=== PATIENT | female | born 1950 | race Caucasian/White ===

== ENCOUNTER 2020-09-16 13:32 | Emergency (ER) | payer OTHER, MEDICARE ==
[2020-09-16] MEDS ORDERED: Ketorolac 30 MG/ML SDV IM ONE (14:01)
[2020-09-16] MEDS ORDERED: ALPRAZolam 0.25 MG Tab PO ONE (14:02)
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
[2020-09-16] MEDS ORDERED: Acetaminophen/oxyCODONE 325-5 MG Tab PO STA (15:05)
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
[2020-09-16] MEDS ORDERED: Metoprolol Tartrate 50 MG Tab PO ONE (15:48)
[2020-09-16 16:38] VITALS: BP 185/99; PULSE 76
== END 2020-09-16 16:38 | disposition home or self-care (01) ==
LOC: JP.ED 13:32
DX: S20.212A Contusion of left front wall of thorax, initial encounter (principal); I10 Essential (primary) hypertension; E78.00 Pure hypercholesterolemia, unspecified; F03.90 Unspecified dementia, unspecified severity, without behavioral disturbance, psychotic disturbance, mood disturbance, and anxiety; Z90.710 Acquired absence of both cervix and uterus; Z88.0 Allergy status to penicillin; Z88.1 Allergy status to other antibiotic agents; Z79.899 Other long term (current) drug therapy; V43.52XA Car driver injured in collision with other type car in traffic accident, initial encounter
CPT/HCPCS: 71046; 96372; 99283; 99285-25; A9270-GY; J1885

== ENCOUNTER 2021-01-28 07:44 | Emergency (ER) | payer MEDICARE, OTHER ==
--- NOTE | 2021-01-28 08:40 | EDM.PDOC ---
ED HPI GENERAL MEDICAL PROBLEM - General Chief Complaint: Abdominal Pain Stated Complaint: CONSTIPATION Time Seen by Provider: 01/28/21 08:15 Source of Information: Reports: Patient History Limitations: Reports: No Limitations - History of Present Illness INITIAL COMMENTS - FREE TEXT/NARRATIVE: 70-year-old female has been struggling with some generalized abdominal pain for the past week. She is eating okay, having some bowel movements, tried some laxative and that did not seem to help. It seems to be central in location and nonradiating, not related to activity. No fevers or chills. She does have a history of several abdominal surgeries, denies any shortness of breath or chest pain. Nausea but no vomiting. Her symptoms are vague, nonspecific. Onset: Gradual Duration: Day(s): (Has been having intermittent abdominal pain for 7 days) Location: Reports: Abdomen (Especially central abdomen, no radiation) Quality: Reports: Ache (Steady ache) Improves with: Reports: Medication (She thought Pepto-Bismol helped "a little") Worsens with: Reports: None Associated Symptoms: Reports: Malaise, Other (Mild nausea no vomiting). Denies: Chest Pain, Cough, Diaphoresis, Fever/Chills, Loss of Appetite ABDOMINAL Pain Score (Numeric/FACES): 8 - Related Data Allergies Allergy/AdvReac Type Severity Reaction Status Date / Time amitriptyline Allergy Diarrhea Verified 01/28/21 07:55 azithromycin Allergy Cannot Verified 01/28/21 07:55 Remember Penicillins Allergy Weakness Verified 01/28/21 07:55 Home Meds: Home Meds DULoxetine [Cymbalta] 60 mg PO BEDTIME 11/23/14 [History] Simvastatin 20 mg PO BEDTIME 11/23/14 [History] traMADol HCl [Tramadol HCl] 50 mg PO QID 11/23/14 [History] Pregabalin 100 mg PO ASDIRECTED 09/16/20 [History] Past Medical History Cardiovascular History: Reports: High Cholesterol Respiratory History: Reports: None Gastrointestinal History: Reports: None Musculoskeletal History: Reports: Back Pain, Chronic Other Musculoskeletal History: scoliosis Neurological History: Reports: None Psychiatric History: Reports: Dementia, Other (See Below) Other Psychiatric History: insomnia Endocrine/Metabolic History: Reports: None Hematologic History: Reports: None Immunologic History: Reports: None Oncologic (Cancer) History: Reports: None Dermatologic History: Reports: None - Infectious Disease History Infectious Disease History: Reports: Chicken Pox, Measles, Mumps - Past Surgical History HEENT Surgical History: Reports: Oral Surgery Other HEENT Surgeries/Procedures: upper denture GI Surgical History: Reports: None Female Surgical History: Reports: Hysterectomy, Salpingo-Oophorectomy Musculoskeletal Surgical History: Reports: None Social & Family History - Tobacco Use Tobacco Use Status *Q: Current Every Day Tobacco User Years of Tobacco use: 50 Packs/Tins Daily: 0.5 - Caffeine Use Caffeine Use: Reports: Coffee - Recreational Drug Use Recreational Drug Use: No ED ROS GENERAL - Review of Systems Review Of Systems: See Below Constitutional: Reports: Malaise. Denies: Fever, Chills HEENT: Reports: No Symptoms Respiratory: Denies: Shortness of Breath, Cough Cardiovascular: Denies: Chest Pain, Palpitations GI/Abdominal: Reports: Abdominal Pain, Constipation, Nausea. Denies: Hematemesis, Hematochezia, Vomiting : Reports: No Symptoms. Denies: Dysuria, Flank Pain Musculoskeletal: Reports: Back Pain (Chronic back pain, unchanged) Skin: Reports: No Symptoms Neurological: Denies: Dizziness, Numbness, Tingling, Weakness Psychiatric: Reports: No Symptoms ED EXAM, GENERAL - Physical Exam Exam: See Below Exam Limited By: No Limitations General Appearance: Alert, No Apparent Distress Eye Exam: Bilateral Eye: Normal Inspection (No jaundice) Head: Atraumatic Neck: Supple, Non-Tender Respiratory/Chest: No Respiratory Distress, Lungs Clear Cardiovascular: Regular Rate, Rhythm. No: Tachycardia, Extra Beats GI/Abdominal: Soft, Tender (She is very tender to palpation just below the umbilicus with some mild guarding but no rebound tenderness, bowel sounds are normal) Back Exam: Other (Patient has a fairly dramatic appearing scoliosis which is chronic) Neurological: Alert, Oriented Psychiatric: Normal Affect, Normal Mood Skin Exam: Warm, Dry Course - Vital Signs Last Recorded V/S: Last Vital Signs Temp 97.7 F 01/28/21 08:07 Pulse 71 01/28/21 10:08 Resp 14 01/28/21 10:08 BP 204/109 H 01/28/21 10:08 Pulse Ox 98 01/28/21 10:08 - Orders/Labs/Meds Orders: Active Orders 24 hr Category Date Time Status UA W/MICROSCOPIC [URIN] Stat Lab 01/28/21 08:19 Ordered Labs: Laboratory Tests 01/28/21 01/28/21 01/28/21 Range/Units 08:30 08:30 08:30 WBC 7.0 (4.5-11.0) K/uL RBC 4.97 (3.30-5.50) M/uL Hgb 15.1 H (12.0-15.0) g/dL Hct 46.0 (36.0-48.0) % MCV 93 (80-98) fL MCH 30 (27-31) pg MCHC 33 (32-36) % Plt Count 325 (150-400) K/uL Neut % (Auto) 63 (36-66) % Lymph % (Auto) 30 (24-44) % [place] % (Auto) 5 (2-6) % Eos % (Auto) 1 L (2-4) % Baso % (Auto) 0 (0-1) % Sodium 146 (140-148) mmol/L Potassium 4.1 (3.6-5.2) mmol/L Chloride 106 (100-108) mmol/L Carbon Dioxide 28 (21-32) mmol/L Anion Gap 12.3 (5.0-14.0) mmol/L BUN 18 (7-18) mg/dL Creatinine 1.0 (0.6-1.0) mg/dL Est Cr Clr Drug Dosing 41.99 mL/min Estimated GFR (MDRD) 55 L (>60) Glucose 118 H (74-106) mg/dL Lactic Acid 1.2 (0.4-2.0) mmol/L Calcium 9.6 (8.5-10.1) mg/dL Total Bilirubin 0.4 (0.2-1.0) mg/dL AST 13 L (15-37) U/L ALT 20 (12-78) U/L Alkaline Phosphatase 66 (46-116) U/L Total Protein 6.8 (6.4-8.2) g/dL Albumin 3.8 (3.4-5.0) g/dL Globulin 3.0 (2.3-3.5) g/dL Albumin/Globulin Ratio 1.3 (1.2-2.2) Lipase 185 (73-393) U/L Meds: Medications Discontinued Medications Generic Name Dose Route Start Last Admin Trade Name Freq PRN Reason Stop Dose Admin Sodium Chloride 1,000 mls @ 999 mls/hr 01/28/21 09:15 01/28/21 09:41 Normal Saline IV 999 mls/hr ASDIRECTED JOSE Administration Sodium Chloride 70 mls @ 3 mls/sec 01/28/21 09:49 01/28/21 09:58 Normal Saline IV 01/28/21 09:50 3 mls/sec ONETIME ONE Administration Iopamidol 96 ml 01/28/21 09:49 01/28/21 09:58 Iopamidol 612 Mg/Ml 500 Ml Multipack Bottle IV 01/28/21 09:50 96 ml ONETIME ONE Administration Pantoprazole Sodium 40 mg 01/28/21 10:22 01/28/21 10:32 Pantoprazole 40 Mg Vial IVPUSH 01/28/21 10:23 40 mg ONETIME ONE Administration Sodium Chloride 10 ml 01/28/21 09:49 01/28/21 09:58 Sodium Chloride 0.9% 10 Ml Sdv FLUSH 01/28/21 09:50 10 ml ONETIME ONE Administration - Re-Assessments/Exams Free Text/Narrative Re-Assessment/Exam: 01/28/21 08:47 CBC, CMP, lipase were obtained as well as a UA. Lactic acid was drawn as well, we will likely need a CT scan because of the chronicity of symptoms. 01/28/21 09:15 Labs returned very reassuring, CBC lactic acid and lipase were all normal. This was explained to the patient and we discussed a CT scan versus treatment with a PPI for 1 to 2 weeks to see if this improves, she was scared to try the medication without evaluating with a CT because she was sure something was seriously wrong. An IV was started, hydration started and abdomen pelvis with IV contrast will be obtained. 01/28/21 10:[address] showed no reason for pain. She remained stable, no nausea or vomiting. She was given 40 mg of IV Protonix, and I would like her to take 40 mg of omeprazole daily for 3 weeks, a prescription was written. I would also like her to recheck with Dr. Hannon in the next 5 to 10 days for blood pressure recheck and to see if she is getting any benefit from the omeprazole. She can return sooner if worsening such as fever or increased pain. There is no evidence of constipation on the CT scan so I am going to encourage her to just continue with liquids and fiber as needed. Departure - Departure Time of Disposition: 11:04 Disposition: Home, Self-Care 01 Clinical Impression: Abdominal pain Qualifiers: Abdominal location: periumbilical Qualified Code(s): R10.33 - Periumbilical pain - Discharge Information Instructions: Abdominal Pain, Adult, [id number] Referrals: Vimal Hannon MD [Primary Care Provider] - Forms: ED Department Discharge Care Plan Goals: Continue your current medications, take 2 pills of omeprazole daily for at least 1 week starting tomorrow. Best is to take it 20 minutes before your first meal. If symptoms resolve, continue on 1 omeprazole daily for up to 3 weeks and r echeck with Dr. Hannon regarding her blood pressure and symptoms. Return to the emergency room if worsening such as fever, increased pain or other concerns. Sepsis Event Note (ED) - Evaluation Sepsis Screening Result: No Definite Risk - Focused Exam Vital Signs: Vital Signs Temp Pulse Resp BP Pulse Ox 01/28/21 10:08 71 14 204/109 H 98 01/28/21 09:00 73 12 176/120 H 99 01/28/21 08:07 97.7 F 88 14 169/111 H 99 - My Orders Last 24 Hours: My Active Orders 01/28/21 08:19 UA W/MICROSCOPIC [URIN] Stat - Assessment/Plan Last 24 Hours: My Active Orders 01/28/21 08:19 UA W/MICROSCOPIC [URIN] Stat
[2021-01-28] MEDS ORDERED: Sodium Chloride 0.9% 1,000 ML IV SCH (09:15)
[2021-01-28] MEDS ORDERED: Iopamidol 612 MG/ML 500 ML Multipack Bottle IV ONE (09:49)
[2021-01-28] MEDS ORDERED: Sodium Chloride 0.9% 10 ML SDV FLUSH ONE (09:49)
[2021-01-28 10:08] VITALS: BP 204/109; PULSE 71
--- NOTE | 2021-01-28 10:17 | CT ---
Abdomen Pelvis w Cont CLINICAL HISTORY: Abdominal pain COMPARISON: None. TECHNIQUE: Transverse scans were obtained from the base of the lungs to the pubic symphysis following oral contrast and IV infusion of contrast.Auto dosage reduction and iterative reconstructiontechniques employed. FINDINGS: The lung bases are clear. Patient has severe S-shaped rotoscoliosis. The liver shows no mass or biliary dilatation. The gallbladder contains at least one small gallstone. No common duct dilatation is identified. The spleen has a normal size and shape. The pancreas shows no mass or inflammatory change. The adrenal glands appear normal bilaterally . The right kidney contains 2 small cysts. There is no stones or hydronephrosis The ureters have a normal caliber. The bladder has a normal contour. There has been previous hysterectomy The aorta shows atheromatous plaque. Distal aorta is ectatic at 2.7 x 2.8 cm. There is no suspicious retroperitoneal adenopathy. Small intestinal configuration is nonacute. There are a few scattered small diverticula without evidence of diverticulitis. The appendix is not definitively identified. There is no evidence of appendicitis. IMPRESSION: Cholelithiasis with no biliary dilatation Mild diverticulosis Aortic ectasia
[2021-01-28] MEDS ORDERED: Pantoprazole 40 MG Vial IVPUSH ONE (10:22)
== END 2021-01-28 11:09 | disposition home or self-care (01) ==
LOC: JP.ED 07:44
DX: R10.33 Periumbilical pain (principal); E78.00 Pure hypercholesterolemia, unspecified; M41.9 Scoliosis, unspecified; F03.90 Unspecified dementia, unspecified severity, without behavioral disturbance, psychotic disturbance, mood disturbance, and anxiety; Z72.0 Tobacco use; Z88.8 Allergy status to other drugs, medicaments and biological substances; Z88.1 Allergy status to other antibiotic agents; Z88.0 Allergy status to penicillin
CPT/HCPCS: 36415; 74177; 80053; 83605; 83690; 85025; 96374; 99284; C9113; J7030; Q9967

== ENCOUNTER 2021-11-24 15:48 | Emergency (ER) | payer MEDICARE ==
[2021-11-24 16:38] VITALS: BP 173/93; PULSE 88
[2021-11-24] MEDS ORDERED: Albuterol 8 GM Inhaler INH ONE (16:55)
[2021-11-24 16:59] LABS: CORONAVIRUS COVID-19 NAA POSITIVE (NEGATIVE)
== END 2021-11-24 17:36 | disposition home or self-care (01) ==
LOC: JP.ED 15:48
DX: U07.1 COVID-19 (principal); E78.00 Pure hypercholesterolemia, unspecified; Z79.899 Other long term (current) drug therapy; Z88.0 Allergy status to penicillin; Z88.1 Allergy status to other antibiotic agents; Z88.8 Allergy status to other drugs, medicaments and biological substances; Z72.0 Tobacco use
CPT/HCPCS: 0241U; 94640; 99283; A9270

== ENCOUNTER 2021-12-26 16:46 | Emergency (ER) | payer MEDICARE ==
[2021-12-26 19:13] VITALS: PULSE 83
[2021-12-26] MEDS ORDERED: amLODIPine 5 MG Tab PO ONE (19:53)
[2021-12-26 20:04] VITALS: BP 181/106
== END 2021-12-26 20:12 | disposition home or self-care (01) ==
LOC: JP.ED 16:46
DX: U07.1 COVID-19 (principal); I10 Essential (primary) hypertension; E78.00 Pure hypercholesterolemia, unspecified; Z72.0 Tobacco use; Z88.0 Allergy status to penicillin; Z88.1 Allergy status to other antibiotic agents; Z88.8 Allergy status to other drugs, medicaments and biological substances; Z79.899 Other long term (current) drug therapy
CPT/HCPCS: 36415; 71046; 71046-26; 80053; 82728; 83605; 83615; 83880; 84145; 84484; 85025; 85379; 86140; 93005; 99283; 99285-25; A9270-GY

== ENCOUNTER 2022-04-03 08:15 | Day surgery (SDC) | payer MEDICARE ==
[2022-04-03] MEDS ORDERED: Sodium Chloride 0.9% 10 ML Syringe FLUSH ONE (08:30)
[2022-04-03 09:33] VITALS: BP 149/97; PULSE 74
== END 2022-04-03 09:34 | disposition home or self-care (01) ==
LOC: JP.SDS 08:15
PROVIDERS: ATTEND Ophthalmology
DX: H25.11 Age-related nuclear cataract, right eye (principal); J44.9 Chronic obstructive pulmonary disease, unspecified; F32.A Depression, unspecified; F17.200 Nicotine dependence, unspecified, uncomplicated; E66.9 Obesity, unspecified; Z88.0 Allergy status to penicillin; Z88.1 Allergy status to other antibiotic agents; Z68.25 Body mass index [BMI] 25.0-25.9, adult
CPT/HCPCS: 66984; J3490

== ENCOUNTER 2022-04-08 13:09 | Emergency (ER) | payer MEDICARE ==
[2022-04-08 13:32] VITALS: BP 185/113; PULSE 70
== END 2022-04-08 15:35 | disposition home or self-care (01) ==
LOC: JP.ED 13:09
DX: R20.2 Paresthesia of skin (principal); I10 Essential (primary) hypertension; E78.00 Pure hypercholesterolemia, unspecified; F17.210 Nicotine dependence, cigarettes, uncomplicated; Z88.0 Allergy status to penicillin; Z88.1 Allergy status to other antibiotic agents; Z79.899 Other long term (current) drug therapy
CPT/HCPCS: 70450; 99281; 99284-25

== ENCOUNTER 2022-05-22 06:17 | Day surgery (SDC) | payer MEDICARE ==
[2022-05-22] MEDS ORDERED: Sodium Chloride 0.9% 10 ML Syringe FLUSH ONE (07:00)
[2022-05-22 08:09] VITALS: PULSE 70
[2022-05-22 08:19] VITALS: BP 184/103
== END 2022-05-22 08:30 | disposition home or self-care (01) ==
LOC: JP.SDS 06:17
PROVIDERS: ATTEND Ophthalmology
DX: H25.12 Age-related nuclear cataract, left eye (principal); I10 Essential (primary) hypertension; E78.5 Hyperlipidemia, unspecified
CPT/HCPCS: 66984; J3490; V2632

== ENCOUNTER 2025-06-09 12:51 | Inpatient (IN) | payer MEDICARE ==
[2025-06-09 13:17] LABS: BASOPHILS ABSOLUTE AUTO 0.03 K/uL (0.00-0.10); BASOPHILS PERCENT AUTO 0.5 % (0.1-1.3); EOSINOPHILS PERCENT AUTO 0.2 % (0.0-5.4); IMMATURE GRAN PERCENT AUTO 0.3 % (0.0-0.7); LYMPHOCYTES ABSOLUTE AUTO 1.27 K/uL (0.8-3.3); LYMPHOCYTES PERCENT AUTO 19.8 % (11.4-47.7); MONOCYTES ABSOLUTE AUTO 0.50 K/uL (0.20-0.90); MONOCYTES PERCENT AUTO 7.8 % (3.3-12.6); NEUTROPHILS ABSOLUTE AUTO 4.58 K/uL (1.0-7.6); NEUTROPHILS PERCENT AUTO 71.4 % (40.0-78.1); PLATELET COUNT,PLT 336 K/uL (130-375); RED BLOOD CELL COUNT 5.37 M/uL (3.77-5.24); WHITE BLOOD CELL COUNT,WBC 6.4 K/uL (3.2-11.0)
[2025-06-09 13:18] LABS: EOSINOPHILS ABSOLUTE AUTO 0.01 K/uL (0.00-0.40); IMMATURE GRAN ABSOLUTE AUTO 0.02 K/uL (0.00-0.23)
[2025-06-09 13:34] LABS: APPEARANCE,URINE CLEAR (CLEAR); GLUCOSE,URINE NEGATIVE (NEGATIVE); OCCULT BLOOD,URINE TRACE-INTACT (NEGATIVE)
[2025-06-09 13:39] LABS: A/G RATIO 1.1 (1.2-2.2); ALANINE AMINOTRANSFERASE,ALT 20 U/L (12-78); ASPARTATE AMNIOTRANSFERASE,AST 19 U/L (15-37); BILIRUBIN TOTAL 0.9 mg/dL (0.2-1.0); BLOOD UREA NITROGEN,BUN 14 mg/dL (7-18); CARBON DIOXIDE,CO2 27 mmol/L (21-32); CHLORIDE,CL 99 mmol/L (100-108); CREATININE 0.8 mg/dL (0.6-1.0); EST CRCL DRUG DOSING (CG) 53.28 mL/min; ESTIMATED GFR 77 mL/min (>60); GLUCOSE RANDOM 106 mg/dL (74-106); POTASSIUM,K 3.7 mmol/L (3.6-5.2); PROTEIN TOTAL,TP 7.6 g/dL (6.4-8.2); SODIUM,NA 134 mmol/L (140-148)
[2025-06-09 13:44] LABS: SQUAMOUS EPITHELIAL CELLS,UR FEW /HPF; UROTHELIAL CELLS,URINE NOT SEEN /HPF
[2025-06-09 13:44] LABS: LACTIC ACID 1.2 mmol/L (0.4-2.0)
[2025-06-09] MEDS: hydrALAZINE 20 MG/ML SDV IVPUSH ONE (16:17)
[2025-06-09] MEDS: LORazepam 2 MG/ML SDV IVPUSH ONE (17:02)
[2025-06-09] MEDS: Iopamidol 755 Mg/ML 100 ML Bottle IV SCH (18:12)
[2025-06-09] MEDS: Enalaprilat 1.25 MG/ML SDV IVPUSH ONE (18:45)
[2025-06-09 19:06] LABS: AMPHETAMINES SCREEN, URINE NEGATIVE (NEGATIVE); METHADONE SCREEN, URINE NEGATIVE (NEGATIVE); METHAMPHETAMINES SCREEN, URINE NEGATIVE (NEGATIVE); OXYCODONE SCREEN,URINE NEGATIVE (NEGATIVE); PROPOXYPHENE SCREEN,URINE NEGATIVE (NEGATIVE); THC SCREEN,URINE 50 NG/ML NEGATIVE (NEGATIVE)
[2025-06-09] MEDS ORDERED: Iopamidol 755 Mg/ML 100 ML Bottle IV SCH (21:15)
[2025-06-09] MEDS ORDERED: Propofol 200 MG/20 ML SDV ONE (22:20)
[2025-06-10 00:29] LABS: T4 FREE 1.17 ng/dL (0.76-1.46); TSH ULTRASENSITIVE 2.199 uIU/mL (0.358-3.740)
[2025-06-10] MEDS: Enalaprilat 1.25 MG/ML SDV IVPUSH ONE (01:08)
[2025-06-10] MEDS ORDERED: Ondansetron 4 MG Tab.DIS PO PRN (02:52)
[2025-06-10] MEDS ORDERED: Magnesium Hydroxide 400 MG/5 ML Susp 30 ML Cup PO PRN (02:52)
[2025-06-10] MEDS ORDERED: Sennosides/Docusate Sodium 50-8.6 MG Tab PO PRN (02:52)
[2025-06-10] MEDS ORDERED: LORazepam 2 MG/ML SDV IVPUSH PRN (02:52)
[2025-06-10] MEDS ORDERED: Sodium Chloride 0.9% 10 ML Syringe FLUSH PRN (02:52)
[2025-06-10] MEDS ORDERED: Ondansetron 4 MG/2 ML SDV IV PRN (02:52)
[2025-06-10 03:11] LABS: BASOPHILS ABSOLUTE AUTO 0.04 K/uL (0.00-0.10); BASOPHILS PERCENT AUTO 0.5 % (0.1-1.3); EOSINOPHILS PERCENT AUTO 0.0 % (0.0-5.4); IMMATURE GRAN PERCENT AUTO 0.2 % (0.0-0.7); LYMPHOCYTES ABSOLUTE AUTO 1.80 K/uL (0.8-3.3); LYMPHOCYTES PERCENT AUTO 22.1 % (11.4-47.7); MONOCYTES ABSOLUTE AUTO 0.97 K/uL (0.20-0.90); MONOCYTES PERCENT AUTO 11.9 % (3.3-12.6); NEUTROPHILS ABSOLUTE AUTO 5.32 K/uL (1.0-7.6); NEUTROPHILS PERCENT AUTO 65.3 % (40.0-78.1); PLATELET COUNT,PLT 309 K/uL (130-375); RED BLOOD CELL COUNT 5.12 M/uL (3.77-5.24); WHITE BLOOD CELL COUNT,WBC 8.2 K/uL (3.2-11.0)
[2025-06-10 03:13] LABS: EOSINOPHILS ABSOLUTE AUTO 0.00 K/uL (0.00-0.40); IMMATURE GRAN ABSOLUTE AUTO 0.02 K/uL (0.00-0.23)
[2025-06-10 03:26] LABS: A/G RATIO 1.2 (1.2-2.2); ALANINE AMINOTRANSFERASE,ALT 17 U/L (12-78); ASPARTATE AMNIOTRANSFERASE,AST 29 U/L (15-37); BILIRUBIN TOTAL 0.8 mg/dL (0.2-1.0); BLOOD UREA NITROGEN,BUN 11 mg/dL (7-18); CARBON DIOXIDE,CO2 20 mmol/L (21-32); CHLORIDE,CL 105 mmol/L (100-108); CREATININE 0.8 mg/dL (0.6-1.0); EST CRCL DRUG DOSING (CG) 53.28 mL/min; ESTIMATED GFR 77 mL/min (>60); GLUCOSE RANDOM 102 mg/dL (74-106); POTASSIUM,K 3.5 mmol/L (3.6-5.2); PROTEIN TOTAL,TP 6.6 g/dL (6.4-8.2); SODIUM,NA 139 mmol/L (140-148)
[2025-06-10 05:08] LABS: BASE EXCESS ARTERIAL -3.4 mm/L; BICARBONATE,ARTERIAL 18.7 mmol/L (22.0-26.0); O2 SATURATION ARTERIAL 94.6 % (95.0-98.0); OXYHEMOGLOBIN 92.5 %; PCO2 ARTERIAL 27.7 mmHg (35.0-42.0); PO2 ARTERIAL 72.4 mmHg (75.0-100.0); TOTAL HEMOGLOBIN 15.6 g/dL (12.0-16.0)
[2025-06-10] MEDS: Labetalol 100 MG/20 ML MDV IVPUSH PRN (05:13)
[2025-06-10] MEDS: Potassium Chloride 20 MEQ in Premix Bag 1 BAG IV ONE (05:26)
[2025-06-10 08:07] LABS: BASOPHILS ABSOLUTE AUTO 0.03 K/uL (0.00-0.10); BASOPHILS PERCENT AUTO 0.4 % (0.1-1.3); EOSINOPHILS PERCENT AUTO 0.0 % (0.0-5.4); IMMATURE GRAN PERCENT AUTO 0.1 % (0.0-0.7); LYMPHOCYTES ABSOLUTE AUTO 1.30 K/uL (0.8-3.3); LYMPHOCYTES PERCENT AUTO 18.4 % (11.4-47.7); MONOCYTES ABSOLUTE AUTO 0.73 K/uL (0.20-0.90); MONOCYTES PERCENT AUTO 10.3 % (3.3-12.6); NEUTROPHILS ABSOLUTE AUTO 5.01 K/uL (1.0-7.6); NEUTROPHILS PERCENT AUTO 70.8 % (40.0-78.1); PLATELET COUNT,PLT 304 K/uL (130-375); RED BLOOD CELL COUNT 4.92 M/uL (3.77-5.24); WHITE BLOOD CELL COUNT,WBC 7.1 K/uL (3.2-11.0)
[2025-06-10 08:14] LABS: EOSINOPHILS ABSOLUTE AUTO 0.00 K/uL (0.00-0.40); IMMATURE GRAN ABSOLUTE AUTO 0.01 K/uL (0.00-0.23)
[2025-06-10 08:27] LABS: A/G RATIO 1.1 (1.2-2.2); ALANINE AMINOTRANSFERASE,ALT 21 U/L (12-78); ASPARTATE AMNIOTRANSFERASE,AST 32 U/L (15-37); BILIRUBIN TOTAL 0.9 mg/dL (0.2-1.0); BLOOD UREA NITROGEN,BUN 11 mg/dL (7-18); CARBON DIOXIDE,CO2 22 mmol/L (21-32); CHLORIDE,CL 106 mmol/L (100-108); CREATININE 0.8 mg/dL (0.6-1.0); EST CRCL DRUG DOSING (CG) 53.28 mL/min; ESTIMATED GFR 77 mL/min (>60); GLUCOSE RANDOM 105 mg/dL (74-106); POTASSIUM,K 3.6 mmol/L (3.6-5.2); PROTEIN TOTAL,TP 6.4 g/dL (6.4-8.2); SODIUM,NA 140 mmol/L (140-148)
[2025-06-13 14:02] VITALS: BP 106/86; PULSE 82
[2025-06-15 00:19] LABS: COPPER,SERUM/PLASMA 78.6 ug/dL (80.0-155.0)
== END 2025-06-13 14:54 | disposition home or self-care (01) | DRG 73 ==
LOC: JP.ED 12:51 → UNDOADMIN 06-10 02:26 → JP.MS 06-10 02:26
PROVIDERS: ADMIT Nurse Practitioner; ATTEND Internal Medicine
PROC: 4A033R1 Measurement of Arterial Saturation, Peripheral, Percutaneous Approach (ICD-10-PCS; principal; 2025-06-10)
DX: R41.82 Altered mental status, unspecified (principal); F03.90 Unspecified dementia, unspecified severity, without behavioral disturbance, psychotic disturbance, mood disturbance, and anxiety; G90.81 Serotonin syndrome; G92.8 Other toxic encephalopathy; I16.0 Hypertensive urgency; E78.00 Pure hypercholesterolemia, unspecified; I10 Essential (primary) hypertension; G89.29 Other chronic pain; F32.A Depression, unspecified; F17.210 Nicotine dependence, cigarettes, uncomplicated; R00.0 Tachycardia, unspecified; T43.215A Adverse effect of selective serotonin and norepinephrine reuptake inhibitors, initial encounter; T40.425A Adverse effect of tramadol, initial encounter; I71.20 Thoracic aortic aneurysm, without rupture, unspecified; I71.40 Abdominal aortic aneurysm, without rupture, unspecified; E86.0 Dehydration; M54.50 Low back pain, unspecified; Z88.8 Allergy status to other drugs, medicaments and biological substances; Z88.0 Allergy status to penicillin; Z88.1 Allergy status to other antibiotic agents; Z79.899 Other long term (current) drug therapy; Z79.52 Long term (current) use of systemic steroids; Y92.89 Other specified places as the place of occurrence of the external cause; Z86.16 Personal history of COVID-19; Z98.49 Cataract extraction status, unspecified eye; Z90.710 Acquired absence of both cervix and uterus; Z90.721 Acquired absence of ovaries, unilateral
CPT/HCPCS: 36415 ×2; 70450 ×2; 70496; 70498; 71045 ×2; 71275; 74177; 80053; 80305; 80307; 81001; 83605; 84439; 84443; 85025; 85379; 86140; 86618 ×2; J0360; J2060; J2704; J3490 ×2; J7030 ×2; Q9967; 01922-QZ; 36600; 80179; 82525; 82803; 96361; 96374; 96375; 97116-GP; 97161-GP; 99222; 99232; 99238; 99285-25; A9270-GY; J1920; J3480

== ENCOUNTER 2025-07-28 16:11 | Inpatient (IN) | payer MEDICAID, MEDICARE, OTHER ==
[2025-07-28 17:51] LABS: BASOPHILS PERCENT AUTO 0.3 % (0.1-1.3); EOSINOPHILS PERCENT AUTO 0.0 % (0.0-5.4); IMMATURE GRAN PERCENT AUTO 0.3 % (0.0-0.7); LYMPHOCYTES ABSOLUTE AUTO 1.25 K/uL (0.8-3.3); LYMPHOCYTES PERCENT AUTO 19.8 % (11.4-47.7); MONOCYTES ABSOLUTE AUTO 0.42 K/uL (0.20-0.90); MONOCYTES PERCENT AUTO 6.7 % (3.3-12.6); NEUTROPHILS ABSOLUTE AUTO 4.60 K/uL (1.0-7.6); NEUTROPHILS PERCENT AUTO 72.9 % (40.0-78.1); PLATELET COUNT,PLT 356 K/uL (130-375); RED BLOOD CELL COUNT 5.31 M/uL (3.77-5.24); WHITE BLOOD CELL COUNT,WBC 6.3 K/uL (3.2-11.0)
[2025-07-28 17:52] LABS: BASOPHILS ABSOLUTE AUTO 0.02 K/uL (0.00-0.10); EOSINOPHILS ABSOLUTE AUTO 0.00 K/uL (0.00-0.40); IMMATURE GRAN ABSOLUTE AUTO 0.02 K/uL (0.00-0.23)
[2025-07-28] MEDS: Metoprolol Tartrate 5 MG/5 ML SDV IVPUSH ONE (17:52)
[2025-07-28 18:08] LABS: APPEARANCE,URINE CLEAR (CLEAR); GLUCOSE,URINE NEGATIVE (NEGATIVE); OCCULT BLOOD,URINE NEGATIVE (NEGATIVE)
[2025-07-28 18:15] LABS: A/G RATIO 1.1 (1.2-2.2); ALANINE AMINOTRANSFERASE,ALT 20 U/L (12-78); ASPARTATE AMNIOTRANSFERASE,AST 17 U/L (15-37); BILIRUBIN TOTAL 0.9 mg/dL (0.2-1.0); BLOOD UREA NITROGEN,BUN 16 mg/dL (7-18); CARBON DIOXIDE,CO2 24 mmol/L (21-32); CHLORIDE,CL 100 mmol/L (100-108); CREATININE 1.1 mg/dL (0.6-1.0); ESTIMATED GFR 53 mL/min (>60); GLUCOSE RANDOM 92 mg/dL (74-106); POTASSIUM,K 3.9 mmol/L (3.6-5.2); PROTEIN TOTAL,TP 7.4 g/dL (6.4-8.2); SODIUM,NA 136 mmol/L (140-148); TROPONIN I HIGH SENSITIVITY 23.4 pg/mL (<=60.3)
[2025-07-28 18:19] LABS: SQUAMOUS EPITHELIAL CELLS,UR RARE /HPF; UROTHELIAL CELLS,URINE NOT SEEN /HPF
[2025-07-28 19:25] LABS: AMPHETAMINES SCREEN, URINE NEGATIVE (NEGATIVE); METHADONE SCREEN, URINE NEGATIVE (NEGATIVE); METHAMPHETAMINES SCREEN, URINE NEGATIVE (NEGATIVE); OXYCODONE SCREEN,URINE NEGATIVE (NEGATIVE); PROPOXYPHENE SCREEN,URINE NEGATIVE (NEGATIVE); THC SCREEN,URINE 50 NG/ML NEGATIVE (NEGATIVE)
[2025-07-28] MEDS: Metoprolol Tartrate 5 MG/5 ML SDV IVPUSH SCH (19:42)
[2025-07-28] MEDS ORDERED: Ondansetron 4 MG/2 ML SDV IV PRN (21:04)
[2025-07-29 06:00] LABS: PLATELET COUNT,PLT 331.0 K/uL (130-375); RED BLOOD CELL COUNT 4.76 M/uL (3.77-5.24); WHITE BLOOD CELL COUNT,WBC 6.1 K/uL (3.2-11.0)
[2025-07-29 06:32] LABS: BLOOD UREA NITROGEN,BUN 20.0 mg/dL (7-18); CARBON DIOXIDE,CO2 25.0 mmol/L (21-32); CHLORIDE,CL 103.0 mmol/L (100-108); CREATININE 1.0 mg/dL (0.6-1.0); EST CRCL DRUG DOSING (CG) 46.2 mL/min; ESTIMATED GFR 59.0 mL/min (>60); GLUCOSE RANDOM 89.0 mg/dL (74-106); POTASSIUM,K 3.8 mmol/L (3.6-5.2); SODIUM,NA 137.0 mmol/L (140-148); TSH ULTRASENSITIVE 1.074 uIU/mL (0.358-3.740)
[2025-07-29 10:53] LABS: CREATINE KINASE,CK 127 U/L (26-192)
[2025-07-30 05:53] LABS: PLATELET COUNT,PLT 304.0 K/uL (130-375); RED BLOOD CELL COUNT 4.39 M/uL (3.77-5.24); WHITE BLOOD CELL COUNT,WBC 4.9 K/uL (3.2-11.0)
[2025-07-30 06:14] LABS: BLOOD UREA NITROGEN,BUN 14.0 mg/dL (7-18); CARBON DIOXIDE,CO2 23.0 mmol/L (21-32); CHLORIDE,CL 107.0 mmol/L (100-108); CREATININE 0.8 mg/dL (0.6-1.0); EST CRCL DRUG DOSING (CG) 57.75 mL/min; ESTIMATED GFR 77.0 mL/min (>60); GLUCOSE RANDOM 78.0 mg/dL (74-106); POTASSIUM,K 3.3 mmol/L (3.6-5.2); SODIUM,NA 139.0 mmol/L (140-148)
[2025-07-30] MEDS ORDERED: Sodium Chloride 0.9% 10 ML Syringe IV PRN (09:35)
[2025-07-30] MEDS: Ondansetron 4 MG Tab.DIS PO PRN (12:46)
[2025-07-30] MEDS: Potassium Chloride 20 MEQ Tab.ER PO ONE (12:46)
[2025-07-30] MEDS: Potassium Chloride 20 MEQ Tab.ER ONE (16:23)
[2025-08-02] MEDS: Sennosides/Docusate Sodium 50-8.6 MG Tab PO PRN (13:28)
[2025-08-03] MEDS: Magnesium Hydroxide 400 MG/5 ML Susp 30 ML Cup PO PRN (17:55)
[2025-08-04 12:39] VITALS: BP 107/64; PULSE 68
== END 2025-08-04 12:15 | disposition home health service (06) | DRG 308 ==
LOC: JP.ED 16:11 → JP.MS 19:19
PROVIDERS: ADMIT Registered Nurse; ATTEND Hospitalist
DX: I47.10 Supraventricular tachycardia, unspecified (principal); R53.1 Weakness; T50.905A Adverse effect of unspecified drugs, medicaments and biological substances, initial encounter; G92.8 Other toxic encephalopathy; F03.93 Unspecified dementia, unspecified severity, with mood disturbance; F17.200 Nicotine dependence, unspecified, uncomplicated; I48.0 Paroxysmal atrial fibrillation; T44.3X5A Adverse effect of other parasympatholytics [anticholinergics and antimuscarinics] and spasmolytics, initial encounter; E78.00 Pure hypercholesterolemia, unspecified; I10 Essential (primary) hypertension; J44.9 Chronic obstructive pulmonary disease, unspecified; E86.0 Dehydration; F17.210 Nicotine dependence, cigarettes, uncomplicated; G89.29 Other chronic pain; Z86.16 Personal history of COVID-19; Z98.49 Cataract extraction status, unspecified eye; Z90.710 Acquired absence of both cervix and uterus; Z91.81 History of falling; Z88.1 Allergy status to other antibiotic agents; Z88.0 Allergy status to penicillin; Z88.8 Allergy status to other drugs, medicaments and biological substances; Z79.899 Other long term (current) drug therapy; Z79.51 Long term (current) use of inhaled steroids; Z98.890 Other specified postprocedural states; Z71.6 Tobacco abuse counseling
CPT/HCPCS: 36415; 70450; 71045 ×2; 80053; 80305; 81001; 83605; 84484; 85025; 93005 ×2; 96374; 99285; J3490; 80048; 82550; 84443; 85027; 86140; 93010; 97110-GP; 97129-GN; 97130-GN; 97161-GP; 97166-GO; 97530-GP; 99223; 99231; 99232; 99233; 99238; A9270-GY; J1650; J2470; J7030; Q0162

== ENCOUNTER 2025-08-31 13:16 | Inpatient (IN) | payer MEDICARE ==
[2025-08-31 14:56] LABS: BASOPHILS ABSOLUTE AUTO 0.03 K/uL (0.00-0.10); BASOPHILS PERCENT AUTO 0.5 % (0.1-1.3); EOSINOPHILS PERCENT AUTO 0.0 % (0.0-5.4); IMMATURE GRAN PERCENT AUTO 0.4 % (0.0-0.7); LYMPHOCYTES ABSOLUTE AUTO 1.35 K/uL (0.8-3.3); LYMPHOCYTES PERCENT AUTO 24.1 % (11.4-47.7); MONOCYTES ABSOLUTE AUTO 0.44 K/uL (0.20-0.90); MONOCYTES PERCENT AUTO 7.9 % (3.3-12.6); NEUTROPHILS ABSOLUTE AUTO 3.76 K/uL (1.0-7.6); NEUTROPHILS PERCENT AUTO 67.1 % (40.0-78.1); PLATELET COUNT,PLT 397 K/uL (130-375); RED BLOOD CELL COUNT 5.79 M/uL (3.77-5.24); WHITE BLOOD CELL COUNT,WBC 5.6 K/uL (3.2-11.0)
[2025-08-31 14:58] LABS: EOSINOPHILS ABSOLUTE AUTO 0.00 K/uL (0.00-0.40); IMMATURE GRAN ABSOLUTE AUTO 0.02 K/uL (0.00-0.23)
[2025-08-31 15:17] LABS: CORONAVIRUS COVID-19 NAA NEGATIVE (NEGATIVE); INFLUENZA A NAA NEGATIVE (NEGATIVE); INFLUENZA B NAA NEGATIVE (NEGATIVE); RESPIRATORY SYNCYTIAL VIR NAA NEGATIVE (NEGATIVE)
[2025-08-31 15:20] LABS: ALANINE AMINOTRANSFERASE,ALT 20 U/L (12-78); BLOOD UREA NITROGEN,BUN 23 mg/dL (7-18); CARBON DIOXIDE,CO2 25 mmol/L (21-32); CHLORIDE,CL 99 mmol/L (100-108); CREATININE 1.0 mg/dL (0.6-1.0); ESTIMATED GFR 59 mL/min (>60); GLUCOSE RANDOM 101 mg/dL (74-106); POTASSIUM,K 3.9 mmol/L (3.6-5.2); PROTEIN TOTAL,TP 8.4 g/dL (6.4-8.2); SODIUM,NA 137 mmol/L (140-148); TROPONIN I HIGH SENSITIVITY 56.1 pg/mL (<=60.3)
[2025-08-31 15:31] LABS: ASPARTATE AMNIOTRANSFERASE,AST 12 U/L (15-37); BILIRUBIN TOTAL 0.9 mg/dL (0.2-1.0)
[2025-08-31 15:32] LABS: A/G RATIO 1.1 (1.2-2.2)
[2025-08-31 15:32] LABS: APPEARANCE,URINE CLEAR (CLEAR); GLUCOSE,URINE NEGATIVE (NEGATIVE); OCCULT BLOOD,URINE NEGATIVE (NEGATIVE)
[2025-08-31 15:46] LABS: SQUAMOUS EPITHELIAL CELLS,UR RARE /HPF
[2025-08-31 15:47] LABS: UROTHELIAL CELLS,URINE NOT SEEN /HPF
[2025-08-31] MEDS: Metoprolol Tartrate 5 MG/5 ML SDV IVPUSH ONE (15:57)
[2025-08-31 16:32] LABS: AMPHETAMINES SCREEN, URINE NEGATIVE (NEGATIVE); METHAMPHETAMINES SCREEN, URINE NEGATIVE (NEGATIVE)
[2025-08-31 16:33] LABS: METHADONE SCREEN, URINE NEGATIVE (NEGATIVE); OXYCODONE SCREEN,URINE NEGATIVE (NEGATIVE); PROPOXYPHENE SCREEN,URINE NEGATIVE (NEGATIVE); THC SCREEN,URINE 50 NG/ML NEGATIVE (NEGATIVE)
[2025-08-31] MEDS ORDERED: Albuterol 0.083% 2.5 MG/3 ML Neb Soln NEB PRN (17:41)
[2025-08-31] MEDS ORDERED: Ondansetron 4 MG/2 ML SDV IV PRN (17:41)
[2025-08-31] MEDS ORDERED: Sodium Chloride 0.9% 10 ML Syringe FLUSH PRN (17:41)
[2025-08-31] MEDS: Metoprolol Tartrate 5 MG/5 ML SDV IVPUSH PRN (20:12)
[2025-09-01 06:11] LABS: PLATELET COUNT,PLT 322.0 K/uL (130-375); RED BLOOD CELL COUNT 4.76 M/uL (3.77-5.24); WHITE BLOOD CELL COUNT,WBC 4.8 K/uL (3.2-11.0)
[2025-09-01 06:33] LABS: BLOOD UREA NITROGEN,BUN 18.0 mg/dL (7-18); CARBON DIOXIDE,CO2 24.0 mmol/L (21-32); CHLORIDE,CL 107.0 mmol/L (100-108); CREATININE 0.8 mg/dL (0.6-1.0); EST CRCL DRUG DOSING (CG) 46.55 mL/min; ESTIMATED GFR 77.0 mL/min (>60); GLUCOSE RANDOM 85.0 mg/dL (74-106); POTASSIUM,K 3.5 mmol/L (3.6-5.2); SODIUM,NA 140.0 mmol/L (140-148)
[2025-09-01] MEDS: Potassium Chloride 20 MEQ Tab.ER PO ONE ×2 (09:23→16:09)
[2025-09-02] MEDS: Diltiazem 120 MG Cap.CD PO SCH (08:28)
[2025-09-04] MEDS: Potassium Chloride 20 MEQ Tab.ER PO ONE (09:08)
[2025-09-04 12:06] VITALS: BP 147/90; PULSE 72
== END 2025-09-04 13:34 | disposition home health service (06) | DRG 308 ==
LOC: JP.ED 13:16 → JP.ICU 15:58
PROVIDERS: ADMIT Hospitalist; ATTEND Internal Medicine
DX: E83.52 Hypercalcemia (principal); R53.1 Weakness; I48.91 Unspecified atrial fibrillation; G92.9 Unspecified toxic encephalopathy; F03.A18 Unspecified dementia, mild, with other behavioral disturbance; G89.29 Other chronic pain; F17.200 Nicotine dependence, unspecified, uncomplicated; Z86.16 Personal history of COVID-19; I10 Essential (primary) hypertension; M99.83 Other biomechanical lesions of lumbar region; M54.50 Low back pain, unspecified; E78.00 Pure hypercholesterolemia, unspecified; J44.9 Chronic obstructive pulmonary disease, unspecified; F32.A Depression, unspecified; E86.0 Dehydration; Z79.01 Long term (current) use of anticoagulants; Z79.891 Long term (current) use of opiate analgesic; Z79.899 Other long term (current) drug therapy; Z98.49 Cataract extraction status, unspecified eye; Z90.710 Acquired absence of both cervix and uterus; Z90.721 Acquired absence of ovaries, unilateral; Z98.890 Other specified postprocedural states; Z72.0 Tobacco use; Z88.1 Allergy status to other antibiotic agents; Z88.0 Allergy status to penicillin; Z88.8 Allergy status to other drugs, medicaments and biological substances; Z79.1 Long term (current) use of non-steroidal anti-inflammatories (NSAID)
CPT/HCPCS: 36415; 70450 ×2; 71045 ×2; 80053; 81001; 83690; 84484; 85025; 87040 ×2; 87637; 93005; 93010; 96374; 99285 ×2; J0616; 80048; 80305-QW; 83735; 85027; 94640; 96125-GN; 97110-GP; 97161-GP; 97167-GO; 97530-GP; 99223; 99233; 99238; A9270-GY; J1650; J7030